=== PATIENT | female | born 1965 | race Caucasian/White ===

== ENCOUNTER 2016-09-30 21:32 | Emergency (ER) | payer OTHER ==
[~2016-09-30 21:32] MED LIST: EFFEXOR75 MG; FLEXERIL10 MG PO; LEXIVA700 MG; LEXIVA700 MG PO; MOTRIN600 MG PO; NORCO 5-325 TA1 EACH PO; NORVIR100 M1 PO; NORVIR100 MG; PERCOCET 5/3251 TAB PO; VICODIN 5/500 T1 TAB PO; VIREAD300 MG; VIREAD300 MG PO; ZIAGEN300 MG; ZIAGEN300 MG PO
== END 2016-09-30 22:10 ==
LOC: EDMED 21:32
DX: M54.32 Sciatica, left side (principal); M54.31 Sciatica, right side; I10 Essential (primary) hypertension; F17.200 Nicotine dependence, unspecified, uncomplicated
CPT/HCPCS: J1885